=== PATIENT | female | born 1985 | race Caucasian/White ===

== ENCOUNTER 2018-04-14 18:53 | Emergency (ER) | payer MEDICAID ==
[~2018-04-14] VITALS: Ht 154.9 cm; Wt 38.0 kg
[~2018-04-14 18:53] MED LIST: AMLO5TAB4 PO; CETI10TA15 PO; CLON0.1T20 PO; DIPH25CA83 PO; METO25TA6 PO; NAPR220C15 PO; OMEP-50 PO; VALA10002 PO; [UNRECOGNIZED DRUG - CODE] PO
[2018-04-14] MEDS ORDERED: LIDOcaine 1% 30ml preserv. free vial IJ ONE (21:00)
[2018-04-14] MEDS ORDERED: CEPH-572 PO (22:09)
[2018-04-14 22:35] VITALS: BP 124/68
== END 2018-04-14 22:43 | disposition home or self-care (01) ==
LOC: ER 18:54
DX: S61.210A Laceration without foreign body of right index finger without damage to nail, initial encounter (principal); I10 Essential (primary) hypertension; Z98.890 Other specified postprocedural states; Z88.1 Allergy status to other antibiotic agents; Z79.899 Other long term (current) drug therapy; W23.0XXA Caught, crushed, jammed, or pinched between moving objects, initial encounter; Y93.89 Activity, other specified; Y92.89 Other specified places as the place of occurrence of the external cause; Y99.8 Other external cause status
CPT/HCPCS: 12001; 99283; A6255; A6449; J3490

== ENCOUNTER 2021-07-27 08:30 | Emergency (ER) | payer MEDICAID, OTHER ==
[~2021-07-27] VITALS: Ht 154.9 cm; Wt 38.0 kg
[~2021-07-27 08:30] MED LIST changes: +CLON0.1T2 PO; -CLON0.1T20 PO; +LOP25T PO; -METO25TA6 PO
[2021-07-27 08:37] VITALS: BP 108/72
[2021-07-27 09:37] LABS: URINE HCG NEGATIVE (NEG)
[2021-07-27] MEDS ORDERED: IBUP-1984 PO (10:38)
[2021-07-27] MEDS ORDERED: CYCL-1 PO (10:39)
== END 2021-07-27 10:48 | disposition home or self-care (01) ==
LOC: ER 08:31
DX: M25.512 Pain in left shoulder (principal); M54.2 Cervicalgia; M54.89 Other dorsalgia; I10 Essential (primary) hypertension; J45.909 Unspecified asthma, uncomplicated; F41.9 Anxiety disorder, unspecified; F12.90 Cannabis use, unspecified, uncomplicated; F31.9 Bipolar disorder, unspecified; Z98.890 Other specified postprocedural states; Z88.1 Allergy status to other antibiotic agents; Z79.899 Other long term (current) drug therapy; Z79.2 Long term (current) use of antibiotics; V87.7XXA Person injured in collision between other specified motor vehicles (traffic), initial encounter; Y93.89 Activity, other specified; Y92.89 Other specified places as the place of occurrence of the external cause; Y99.8 Other external cause status
CPT/HCPCS: 72125; 72128; 72131; 81025; 99285

== ENCOUNTER 2024-06-14 08:41 | Emergency (ER) | payer MEDICAID, OTHER ==
[~2024-06-14] VITALS: Ht 156.2 cm; Wt 47.5 kg
[~2024-06-14 08:41] MED LIST changes: +CYCL-1 PO; -OMEP-50 PO; +OMEP20CA16 PO
[2024-06-14 08:46] VITALS: BP 131/77; PULSE 69; O2SAT 100
[2024-06-14] MEDS ORDERED: CYCL-1 PO (09:20)
[2024-06-14] MEDS: orphenadrine citrate 60mg/2ml inj. IM ONE (09:25)
[2024-06-14 09:26] VITALS: RESP 16
[2024-06-14] MEDS: ketorolac trometh 15mg/ml vial 15 MG/ML ML IM ONE (09:26)
[2024-06-14 09:43] VITALS: TEMP 98.9
== END 2024-06-14 09:45 | disposition home or self-care (01) ==
LOC: ER 08:42
DX: M25.512 Pain in left shoulder (principal); M54.2 Cervicalgia; I10 Essential (primary) hypertension; J45.909 Unspecified asthma, uncomplicated; F41.9 Anxiety disorder, unspecified; F12.90 Cannabis use, unspecified, uncomplicated; Z88.1 Allergy status to other antibiotic agents; Z79.899 Other long term (current) drug therapy
CPT/HCPCS: 73030; 96372; 99284; J1885; J2360

== ENCOUNTER 2024-07-01 12:33 | Outpatient (CLI) | payer MEDICAID | END 2024-07-01 23:59 | disposition home or self-care (01) | PROVIDERS: ATTEND Family Medicine | DX: M54.2 Cervicalgia (principal) | CPT/HCPCS: 72050 ==